=== PATIENT | female | born 1950 | race Caucasian/White ===

== ENCOUNTER 2017-03-20 10:43 | Day surgery (SDC) | payer MEDICARE, OTHER ==
--- NOTE | ~2017-03-20 | EGD ---
EGD REPORT [facility] [address] [place] [address] NAME: LATONYA BROOKS : [birth year] STATUS : REG [facility]#: [id number] AGE: 66 ADM/REG DATE : 03/20/17 MR#: [id number] REPORT SERV DATE: 03/20/17 DICTATED BY: MARISABEL LEDESMA DATE: 03/20/17 REPORT STATUS : Draft TRANSCRIBED BY: [employer] DATE: 03/20/17 [facility] Center Patient Name: Latonya Brooks Date of : 1950 Attending MD: MARISABEL LEDESMA MD Procedure Date No Time: 03/20/2017 Procedure: Colonoscopy Indications: Abdominal pain in the left lower quadrant, Clinically significant diarrhea of unexplained origin, FH of Colonic Polyps - 1st degree relative Referring MD: SAVAGE CARDONA Medicines: as per anesthesia Complications: No immediate complications. Procedure: Pre-Anesthesia Assessment: - ASA Grade Assessment: III - A patient with severe systemic disease. After I obtained informed consent, the scope was passed under direct vision. Throughout the procedure, the patient's blood pressure, pulse, and oxygen saturations were monitored continuously. The [facility] [id number] was introduced through the anus and advanced to the cecum, identified by appendiceal orifice and ileocecal valve. The colonoscopy was performed without difficulty. The patient tolerated the procedure. The quality of the bowel preparation was adequate to identify polyps. Findings: The perianal and digital rectal examinations were normal. A sessile polyp was found in the ascending colon. The polyp was 3 mm in size. The polyp was removed with a cold biopsy forceps. Resection and retrieval were complete. Four biopsies were obtained in the rectum and in the ascending colon with cold forceps for histology. Impression: - One 3 mm polyp in the ascending colon. Resected and retrieved. - Four biopsies were obtained in the rectum and in the ascending colon. Recommendation: - Await pathology results. - Repeat colonoscopy for surveillance based on pathology results. Procedure Code(s): --- Professional --- 30293, Colonoscopy, flexible, proximal to splenic EGD REPORT [facility] [address] [place]. [address] NAME: LATONYA BROOKS : [birth year] STATUS : REG [facility] [place] PAT#: [id number] AGE: 66 ADM/REG DATE : 03/20/17 MR#: [id number] REPORT SERV DATE: 03/20/17 DICTATED BY: MARISABEL LEDESMA. DATE: 03/20/17 REPORT STATUS : Draft TRANSCRIBED BY: [employer] DATE: 03/20/17 flexure; with biopsy, single or multiple Diagnosis Code(s): --- Professional --- D12.2, Benign neoplasm of ascending colon R10.32, Left lower quadrant pain R19.7, Diarrhea, unspecified Z83.71, Family history of colonic polyps CPT copyright 2013 [employer]. All rights reserved. The codes documented in this report are preliminary and upon pattern gater review may be revised to meet current compliance requirements. MARISABEL LEDESMA MD 03/20/2017 1:47 PM This report has been signed electronically. Number of Addenda: 0 Note Initiated On: 03/20/2017 1:10 PM Scope Withdrawal Time 0 hours 13 minutes 48 seconds [address] [place] [address]
[~2017-03-20 10:43] MED LIST: ALLEGRA180 PO; AMARYL2 PO; ASAB PO; ASMANEX INH; COZ50 PO; DETROLLA4 PO; DITROXL5 PO; GLUCPH PO; INVOKANA300 MG PO; KLOR-CON 1010 MEQ PO; LIPITOR10 PO; LOP50 PO; MAX25 PO; NORV25 PO; PREV30 PO; PRILO PO; ST. JOHN'S300 MG PO; SYN125 PO
== END 2017-03-20 23:59 | disposition home or self-care (01) ==
LOC: DMU 10:43
PROVIDERS: Internal Medicine Gastroenterology
PROC: 0DBP8ZX Excision of Rectum, Via Natural or Artificial Opening Endoscopic, Diagnostic (ICD-10-PCS; 2017-03-20)
PROC: 0DBK8ZX Excision of Ascending Colon, Via Natural or Artificial Opening Endoscopic, Diagnostic (ICD-10-PCS; 2017-03-20)
PROC: 0DBK8ZZ Excision of Ascending Colon, Via Natural or Artificial Opening Endoscopic (ICD-10-PCS; principal; 2017-03-20 12:00)
DX: K63.5 Polyp of colon (principal); R10.32 Left lower quadrant pain; R19.7 Diarrhea, unspecified; I10 Essential (primary) hypertension; I25.2 Old myocardial infarction; J45.909 Unspecified asthma, uncomplicated; K21.9 Gastro-esophageal reflux disease without esophagitis; E11.9 Type 2 diabetes mellitus without complications; G89.29 Other chronic pain; E78.00 Pure hypercholesterolemia, unspecified; M54.5 Low back pain; Z98.890 Other specified postprocedural states; Z83.71 Family history of colonic polyps; Z79.84 Long term (current) use of oral hypoglycemic drugs; Z79.899 Other long term (current) drug therapy; Z79.82 Long term (current) use of aspirin; Z88.0 Allergy status to penicillin; Z88.8 Allergy status to other drugs, medicaments and biological substances
CPT/HCPCS: 82962; 88305